=== PATIENT | male | born 1945 | race Caucasian/White ===

== ENCOUNTER 2017-01-26 10:24 | Day surgery (SDC) | payer MEDICARE, BC ==
[~2017-01-26] VITALS: Ht 172.7 cm; Wt 96.8 kg
[2017-01-26] MEDS ORDERED: ZOCOR20 MG PO (11:01)
[2017-01-26] MEDS ORDERED: ADVAIR 250/501 DISK INH (11:01)
[2017-01-26] MEDS ORDERED: LEVOTHYROXINE137 MCG PO (11:02)
[2017-01-26] MEDS ORDERED: FLUTICASONE PRO16 GM NASAL (11:02)
[2017-01-26 11:03] VITALS: BP 116/79; Ht 172.7 cm; Wt 96.8 kg
[2017-01-26 11:14] LABS: HEMATOCRIT 47.9 % (42.0-54.0); HEMOGLOBIN 16.5 g/dL (13.5-17.5); MCH 33.2 pg (26.0-34.0); MCHC 34.4 g/dL (31.0-37.0); MCV 96.4 fL (80.0-100.0); MEAN PLATELET VOLUME 10.6 fL (7.4-10.4); RBC 4.97 10x6/uL (4.20-6.10); RDW 12.8 % (11.5-14.5); WBC 8.9 10x3/uL (4.8-10.8)
--- NOTE | 2017-01-26 14:23 | NUR ---
1400- PT DROWSY, BUT RESPONDING TO VERBAL STIMULI. AT BEDSIDE. VSS. WILL MONITOR.
--- NOTE | 2017-01-26 14:50 | NUR ---
1440- IV D/C'D, PT TOLERATED. CATHETER INTACT. 1445- DISCHARGE INSTRUCTIONS COMPLETED, PT VERBALIZES UNDERSTANDIN. PAPERWORK SIGNED 1450- PT DISCHARGED VIA WHEELCHAIR WITH .
== END 2017-01-26 14:50 | disposition home or self-care (01) ==
LOC: D.OPS 10:24
PROVIDERS: Anesthesiology
DX: Z86.010 Personal history of colon polyps (principal); K57.30 Diverticulosis of large intestine without perforation or abscess without bleeding; E03.9 Hypothyroidism, unspecified; D12.2 Benign neoplasm of ascending colon

== ENCOUNTER → 2018-08-01 08:39 | Outpatient (CLI) | payer MEDICARE, BC ==
[2017-01-26 11:03] VITALS: BMI 32.4
[~2018-08-01 08:39] MED LIST: ADVAIR 250/501 DISK INH; FLUTICASONE PRO16 GM NASAL; LEVOTHYROXINE137 MCG PO; ZOCOR20 MG PO
[2018-08-01 10:23] LABS: BASOPHILS 0.3 % (0-2); EOSINOPHILS 2.5 % (0-7); HEMATOCRIT 47.3 % (42.0-54.0); HEMOGLOBIN 16.2 g/dL (13.5-17.5); IMMATURE GRANULOCYTES 0.4 % (0-5); LYMPHOCYTES 22.4 % (15-50); MCH 33.2 pg (26.0-34.0); MCHC 34.2 g/dL (31.0-37.0); MCV 96.9 fL (80.0-100.0); MEAN PLATELET VOLUME 10.4 fL (7.4-10.4); MONOCYTES 11.6 % (2-11); NEUTROPHILS 62.8 % (40-80); PLATELET COUNT 197 10x3/uL (130-400); RBC 4.88 10x6/uL (4.20-6.10); RDW 12.6 % (11.5-14.5); WBC 9.3 10x3/uL (4.8-10.8)
[2018-08-03 21:08] LABS: IMMUNOGLOBULIN E 275 IU/mL (0-100)
== END | disposition home or self-care (01) ==
LOC: D.RT 08:39
PROVIDERS: Internal Medicine Pulmonary Disease
DX: J44.9 Chronic obstructive pulmonary disease, unspecified (principal); J45.909 Unspecified asthma, uncomplicated

== ENCOUNTER 2018-09-27 10:40 | Day surgery (SDC) | payer MEDICARE, BC ==
[~2018-09-27] VITALS: Ht 172.7 cm; Wt 100.0 kg
[2018-09-27 11:31] LABS: BASOPHILS 0.2 % (0-2); EOSINOPHILS 2.9 % (0-7); HEMATOCRIT 47.8 % (42.0-54.0); HEMOGLOBIN 16.7 g/dL (13.5-17.5); IMMATURE GRANULOCYTES 0.4 % (0-5); LYMPHOCYTES 22.1 % (15-50); MCH 33.1 pg (26.0-34.0); MCHC 34.9 g/dL (31.0-37.0); MCV 94.7 fL (80.0-100.0); MEAN PLATELET VOLUME 10.6 fL (7.4-10.4); NEUTROPHILS 63.4 % (40-80); PLATELET COUNT 212 10x3/uL (130-400); RBC 5.05 10x6/uL (4.20-6.10); RDW 12.3 % (11.5-14.5)
[2018-09-27 11:39] LABS: ANION GAP 14.4 mmol/L (8-16); CARBON DIOXIDE 26.9 mmol/L (21.0-32.0); CREATININE - SERUM 1.3 mg/dL (0.6-1.3); POTASSIUM - SERUM 4.3 mmol/L (3.5-5.1)
[2018-09-27] MEDS ORDERED: SINGULAIR10 MG PO (13:35)
[2018-09-27 13:38] VITALS: BP 111/73; Ht 172.7 cm; Wt 100.0 kg
--- NOTE | 2018-09-28 18:23 | OP ---
PATIENT NAME: EVAN PARRA MEDICAL RECORD: [id number] LOCATION:[facility] ADMISSION DATE: SURGEON: ANDREY HARMON MD DATE OF OPERATION: 09/27/2018 PROCEDURE: Colonoscopy with polypectomy. REFERRING PHYSICIAN: Lit Craig MD INDICATION: Mr. Parra is a delightful 73-year-old gentleman with history of colon polyps and diverticulosis coli. His last colonoscopy (with Dr. Taveras) was on 01/26/2017 with findings of a proximal ascending colon polyp that was removed using a lift with saline followed by snare polypectomy in EMR fashion; second polyp just distal to the first one in the ascending colon measuring 0.3 cm in size. Histopathology showed the larger of the polyps was a sessile serrated adenoma and the other smaller polyp was a hyperplastic polyp. He presents for outpatient surveillance colonoscopy. PREMEDICATIONS: Total IV anesthesia (history of sleep apnea and COPD). INSTRUMENT: TiqIQ video colonoscope, pediatric. PROCEDURE AND FINDINGS: After receiving informed consent, Mr. Parra was placed in left lateral decubitus position and sedated as per anesthesia. After achieving an adequate level of sedation, digital rectal exam was performed that showed no external hemorrhoidal tags, fissures, or fistulas. Normal sphincter tone. No palpable rectal masses. Prostate was nonpalpable. Colonoscope was introduced per rectally and advanced to the cecum without difficulty. The cecum, IC valve, and appendiceal orifice were identified and appeared normal. There was a single diverticulum within the cecum. As the colonoscope was withdrawn, careful inspection was made of the fenton of the colon. Overall mucosa had normal vascular and fold pattern. There was no evidence of any polyp remnant or recurrent polyps in the ascending colon. In the mid transverse colon, was a 0.3-cm sessile polyp, removed with hot biopsy forceps technique. Diverticula were seen scattered throughout the colon, moderate, with somewhat more pronounced diverticular changes in the sigmoid colon. Retroflexion in the rectum showed mild internal hemorrhoids. A good prep was present. Mr. Parra tolerated the procedure well. No immediate complications. Withdrawal time was 9 minutes. ASSESSMENT: 1. [id number] pandiverticulosis coli. 2. Small transverse colon polyp, status post polypectomy. 3. No evidence of recurrent or remnant ascending colon polyps. 4. History of serrated adenoma. RECOMMENDATIONS: 1. Follow up histopathology. 2. High-fiber diet, avoiding excessive amounts of nuts, seeds, and popcorn. 3. Recommend daily Metamucil. 4. Surveillance colonoscopy in 3 years. 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
== END 2018-09-27 17:45 | disposition home or self-care (01) ==
LOC: D.OPS 10:40
PROVIDERS: Anesthesiology; ATTEND Internal Medicine Gastroenterology
DX: Z12.11 Encounter for screening for malignant neoplasm of colon (principal); K57.30 Diverticulosis of large intestine without perforation or abscess without bleeding; K63.5 Polyp of colon; K64.8 Other hemorrhoids; Z01.812 Encounter for preprocedural laboratory examination

== ENCOUNTER → 2020-04-03 10:11 | Outpatient (CLI) | payer MEDICARE, BC ==
[2018-09-27 13:38] VITALS: BMI 33.5
[~2020-04-03 10:11] MED LIST changes: +SINGULAIR10 MG PO
== END | disposition home or self-care (01) ==
LOC: D.LAB 10:11
PROVIDERS: ATTEND Internal Medicine Pulmonary Disease
DX: Z13.9 Encounter for screening, unspecified (principal)

== ENCOUNTER → 2020-04-07 13:39 | Outpatient (CLI) | payer MEDICARE, BC ==
[2018-09-27 13:38] VITALS: BMI 33.5
== END | disposition home or self-care (01) ==
LOC: D.RAD 12-25 13:00 → D.RT 12-25 13:00 → D.RAD 12-25 13:45 → D.RT 14:00
PROVIDERS: ATTEND Internal Medicine Pulmonary Disease
DX: J45.991 Cough variant asthma (principal)